=== PATIENT | male | born 1980 | race Caucasian/White ===

== ENCOUNTER 2017-07-29 11:12 | Emergency (ER) | payer SELFPAY ==
[~2017-07-29] VITALS: Ht 177.8 cm; Wt 105.9 kg
[2017-07-29 11:15] VITALS: BP 135/85; TEMP 99.1
[2017-07-29] MEDS ORDERED: TRIAMC 0.025 80 TOP (11:46)
[2017-07-29 11:52] VITALS: PULSE 92
== END 2017-07-29 11:53 | disposition home or self-care (01) ==
LOC: COL.ER 11:12
DX: R21 Rash and other nonspecific skin eruption (principal)

== ENCOUNTER 2018-02-10 16:51 | Emergency (ER) | payer SELFPAY ==
[~2018-02-10] VITALS: Ht 175.3 cm; Wt 88.6 kg
[~2018-02-10 16:51] MED LIST: TRIAMC 0.025 80 TOP
[2018-02-10] MEDS ORDERED: TYLENOL 500MG500 MG PO (17:40)
[2018-02-10] MEDS ORDERED: MOTRIN 200200 MG/TAB PO (17:41)
[2018-02-10] MEDS ORDERED: NORCO 325 MG-51 TAB PO (17:46)
[2018-02-10] MEDS ORDERED: CEPHALEXIN500 M1 PO (17:46)
[2018-02-10 18:07] VITALS: BP 122/71; PULSE 88; TEMP 98.7
== END 2018-02-10 18:08 | disposition home or self-care (01) ==
LOC: COL.ER 16:51
DX: K02.9 Dental caries, unspecified (principal); F17.210 Nicotine dependence, cigarettes, uncomplicated; Z88.0 Allergy status to penicillin

== ENCOUNTER 2018-05-19 13:35 | Emergency (ER) | payer SELFPAY ==
[~2018-05-19] VITALS: Ht 177.8 cm; Wt 104.3 kg
[~2018-05-19 13:35] MED LIST changes: +CEPHALEXIN500 M1 PO; +MOTRIN 200200 MG/TAB PO; +NORCO 325 MG-51 TAB PO; +TYLENOL 500MG500 MG PO
[2018-05-19 13:39] VITALS: BP 121/76; TEMP 98.7
[2018-05-19] MEDS ORDERED: ZOCOR5 MG PO (13:49)
[2018-05-19] MEDS ORDERED: CLOTRIM ANTIFUNGAL1% TP (13:51)
[2018-05-19] MEDS ORDERED: TRIAMCINOLONE A15 G3 TP (13:52)
[2018-05-19 14:48] VITALS: PULSE 121
== END 2018-05-19 14:43 | disposition left against medical advice (07) ==
LOC: COL.ER 13:35
DX: R22.9 Localized swelling, mass and lump, unspecified (principal)

== ENCOUNTER 2018-05-21 10:46 | Emergency (ER) | payer SELFPAY ==
[~2018-05-21] VITALS: Ht 175.3 cm; Wt 100.0 kg
[~2018-05-21 10:46] MED LIST changes: +CLOTRIM ANTIFUNGAL1% TP; +TRIAMCINOLONE A15 G3 TP; +ZOCOR5 MG PO
[2018-05-21 10:50] VITALS: BP 142/79; TEMP 98.4
[2018-05-21] MEDS ORDERED: THE MEDICINE S200 M2 PO (11:01)
[2018-05-21] MEDS ORDERED: BACTRIM DS 8001 TAB PO (12:09)
[2018-05-21] MEDS ORDERED: NORCO 325 MG-51 TAB PO (12:09)
[2018-05-21 12:33] VITALS: PULSE 104
== END 2018-05-21 12:44 | disposition home or self-care (01) ==
LOC: COL.ER 10:46
DX: L02.412 Cutaneous abscess of left axilla (principal); E78.5 Hyperlipidemia, unspecified; F17.210 Nicotine dependence, cigarettes, uncomplicated; Z88.0 Allergy status to penicillin; Z23 Encounter for immunization; Z90.49 Acquired absence of other specified parts of digestive tract

== ENCOUNTER 2018-06-27 22:34 | Emergency (ER) | payer SELFPAY ==
[~2018-06-27] VITALS: Ht 175.3 cm; Wt 100.0 kg
[~2018-06-27 22:34] MED LIST changes: +BACTRIM DS 8001 TAB PO; +THE MEDICINE S200 M2 PO
[2018-06-27 22:39] VITALS: TEMP 98.7
[2018-06-27 23:51] LABS: BASO # 0.1 (0.0-0.2); BASO % 0.6 % (0.0-2.0); EOS # 0.2 (0.0-0.7); EOS % 2.1 % (0-4.0); GRAN # 6.1 (1.4-6.5); HEMATOCRIT 45.9 % (42.0-52.0); HEMOGLOBIN 14.7 g/dl (13.5-18.0); LYMPH # 2.5 (1.2-3.4); LYMPH % 26.4 % (20.0-51.0); MEAN CELL VOLUME 83 fl (80.0-100.0); MEAN CORPUSCULAR HEMOGLOBIN 27 pg (27.0-31.0); MEAN CORPUSCULAR HGB CONC 32 g/dl (33.0-37.0); MEAN PLATELET VOLUME 9.2 fl (7.4-10.4); MONO # 0.6 (0.1-0.6); MONO % 6.5 % (1.7-9.3); PLATELET COUNT 248 K/mm3 (130-400); RED BLOOD COUNT 5.55 M/mm3 (4.20-5.60); REDCELL DISTRIBUTION WIDTH-CV 16.1 % (11.5-14.5)
[2018-06-28] LABS: ALANINE AMINOTRANSFERASE 12 U/L (21-72); ALBUMIN 4.3 gm/dL (3.5-5.0); ALKALINE PHOSPHATASE 98 U/L (50-136); ANION GAP 6 mmol/L (7-16); AST,SGOT 18 U/L (15-37); BILIRUBIN,TOTAL 0.2 mg/dL (0.0-1.0); BLOOD UREA NITROGEN 17 mg/dL (9-20); CALCIUM 9.4 mg/dL (8.4-10.2); CARBON DIOXIDE 27 mmol/L (22-30); CHLORIDE 108 mmol/L (98-107); GLUCOSE 105 mg/dL (74-106); MAGNESIUM 2.2 mg/dL (1.6-2.3); PHOSPHOROUS 3.4 mg/dL (2.5-4.5); POTASSIUM 4.3 mmol/L (3.4-5.0); SODIUM 141 mmol/L (137-145); TOTAL PROTEIN 8.1 gm/dL (6.4-8.2)
[2018-06-28 00:12] LABS: TROPONIN-I < 0.012 ng/mL (0.000-0.035)
[2018-06-28] MEDS ORDERED: FIORICET 325 MG1 TA1 PO (01:56)
[2018-06-28] MEDS ORDERED: PHENERGAN 25 TA25 MG PO (01:56)
[2018-06-28 02:10] VITALS: BP 115/68; PULSE 77
== END 2018-06-28 02:10 | disposition home or self-care (01) ==
LOC: COL.ER 22:34
PROVIDERS: Emergency Medicine
DX: R51 Headache (principal); R55 Syncope and collapse; F17.210 Nicotine dependence, cigarettes, uncomplicated; Z86.69 Personal history of other diseases of the nervous system and sense organs; Z90.49 Acquired absence of other specified parts of digestive tract
CPT/HCPCS: J1200; J1885; J2550; J7030

== ENCOUNTER → 2018-11-15 | Outpatient (CLI) | payer SELFPAY ==
[~2018-11-15] MED LIST changes: +FIORICET 325 MG1 TA1 PO; +PHENERGAN 25 TA25 MG PO
== END ==
LOC: COL.CARD 11:46
DX: R55 Syncope and collapse (principal)

== ENCOUNTER → 2018-12-20 | Outpatient (CLI) | payer SELFPAY | LOC: COL.CARD 12:30 | DX: R55 Syncope and collapse (principal); R42 Dizziness and giddiness ==